=== PATIENT | male | born 1990 | race Caucasian/White ===

== ENCOUNTER 2021-12-01 12:51 | Emergency (ER) | payer OTHER ==
[2021-12-01] MEDS ORDERED: LIDOCAINE 1% MPF 30 ML VIAL ONE (13:35)
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
[2021-12-01 16:03] VITALS: O2SAT 99
[2021-12-01 16:05] VITALS: BP 117/81
== END 2021-12-01 15:36 ==
LOC: ER 12:51
PROC: 0JQH0ZZ Repair Left Lower Arm Subcutaneous Tissue and Fascia, Open Approach (ICD-10-PCS; principal; 2021-12-01)
PROC: 0JQG0ZZ Repair Right Lower Arm Subcutaneous Tissue and Fascia, Open Approach (ICD-10-PCS; 2021-12-01)
DX: S51.812A Laceration without foreign body of left forearm, initial encounter (principal); S51.811A Laceration without foreign body of right forearm, initial encounter; R45.851 Suicidal ideations; F32.A Depression, unspecified; Z88.0 Allergy status to penicillin
CPT/HCPCS: 99284